=== PATIENT | female | born 1995 | race Two or more races ===

== ENCOUNTER 2016-08-24 10:38 | Emergency (ER) | payer OTHER ==
--- NOTE | 2016-08-24 10:47 | ER Document Report ---
ED Medical Screen (RME) - General Stated Complaint: HIP PAIN Time seen by provider: 10:44 Mode of Arrival: Ambulatory Information source: Patient Notes: 20-year-old female presents to ED for bilateral hip pain for the last 2 weeks. States she went to [facility] yesterday and they stated she could not get an MRI but suggested she come to [place] ER to probably get an MRI of the hips. She was given 3 injections muscle relaxers and prescribed 800 mg ibuprofen and Tylenol and Flexeril. LMP 08/10/15 I have greeted and performed a rapid initial assessment of this patient. A comprehensive ED assessment and evaluation of the patient, analysis of test results and completion of medical decision making process will be conducted by an additional ED providers.
--- NOTE | 2016-08-24 11:28 | ER Document Report ---
HPI - HPI Patient complains to provider of: b/l hip pain Pain Level: 4 Context: He is a 20-year-old female presents emergency department after referral from [facility] ED. patient is complaining of bilateral hip pain for 2 weeks. Denies any injury or trauma. Patient states that she has lateral bilateral hip pain that radiates down to her knee and into her lower back. 4-5 at its worst exacerbated by movement. Eyes any urinary incontinence, stool incontinence, saddle anesthesia. At its worse she will have some tingling in her toes. She is able to bear weight. Patient states her exercise she runs which she has been doing over the past 2 weeks but less than she normally does. In doing physical therapy stretching from when she had a hip injury in high school. For pain she has been taking 800 mg of Motrin, 650 mg of Tylenol and 5 mg of Flexeril. She states that she was able to sleep last night and that her pain is under good control with these medications. She is also been using her heat pack. Denies any other past medical history, surgical history. - DERM Skin Color: Normal Past Medical History - General Information source: Patient - Social History Smoking Status: Never Smoker Chew tobacco use (# tins/day): No Frequency of alcohol use: None Drug Abuse: None Family History: Reviewed & Not Pertinent Patient has suicidal ideation: No Patient has homicidal ideation: No Renal/ Medical History: Denies: Hx Peritoneal Dialysis Vertical Provider Document - CONSTITUTIONAL Agree With Documented VS: Yes Exam Limitations: No Limitations General Appearance: WD/WN, No Apparent Distress - INFECTION CONTROL TRAVEL OUTSIDE OF THE [place] IN LAST 30 DAYS: No - HEENT HEENT: Atraumatic, Normocephalic - CARDIOVASCULAR Pulses: Normal: Dorsalis pedis - BACK Back: Normal Inspection Notes: No tenderness. Full range of motion. Patient able to bend over and touch her toes without any limitations or guarding. No evidence of poor posture. - MUSCULOSKELETAL/EXTREMETIES Musculoskeletal/Extremeties: MAEW, FROM, Non-Tender, No Edema. negative: Eccymosis Notes: No evidence of deformities, injury. - NEURO Level of Consciousness: Awake, Alert, Appropriate Motor/Sensory: No Motor Deficit, No Sensory Deficit - DERM Integumentary: Warm, Dry, No Rash Course - Re-evaluation Re-evalutation: 08/24/16 11:28 Patient is a 20-year-old female who is hemodynamically stable, no acute distress and afebrile. Patient able to bear weight and ambulate without any difficulty noted abnormalities. Low index for suspicion for any emergent spine disorders including the telemetry cauda equina. Considering patient has had this complaint for 2 weeks she is not indicated for emergent imaging. She can follow-up with her primary care provider for outpatient workup. Discharge - Discharge Clinical Impression: Hip pain, bilateral Condition: Good Disposition: HOME, SELF-CARE Instructions: Use of Kbab-Ewx-Yenfsea Ibuprofen ([facility]), Acetaminophen, Muscle Relaxers ([facility]), Stretching Exercises for the Back ([facility]) Additional Instructions: Please continue to take your prescriptions from [facility] as prescribed. Follow-up with a new primary care provider for outpatient evaluation at your complaint as soon as you can. Forms: Return to Work
[2016-08-24 12:08] VITALS: BP 122/74
== END 2016-08-24 12:10 | disposition home or self-care (01) ==
LOC: ER 10:38
DX: M25.551 Pain in right hip (principal); M25.552 Pain in left hip; R20.2 Paresthesia of skin; Z87.828 Personal history of other (healed) physical injury and trauma
CPT/HCPCS: 99283

== ENCOUNTER 2016-09-07 10:48 | Day surgery (SDC) | payer OTHER ==
[2016-09-07] MEDS ORDERED: DIPHENHYDRAMINE HCL 50 MG/ML VIAL ONE ×2 (11:05→11:27)
[2016-09-07] MEDS ORDERED: NALOXONE HCL INJ/PF 0.4 MG/1 ML SDV ONE ×2 (11:05→11:27)
[2016-09-07] MEDS ORDERED: PROMETHAZINE HCL INJ 25 MG/1 ML VIAL ONE ×2 (11:06→11:27)
[2016-09-07] MEDS ORDERED: ONDANSETRON HCL INJ/PF 4 MG/2 ML SDV ONE ×2 (11:06→11:27)
[2016-09-07] MEDS ORDERED: EPINEPHRINE INJ 1 MG/10 ML DISP.SYRIN ONE ×2 (11:07→11:28)
[2016-09-07] MEDS ORDERED: GLUCAGON,HUMAN RECOMB 1 MG INJ ONE ×2 (11:07→11:29)
[2016-09-07] MEDS ORDERED: FLUMAZENIL INJ 0.5 MG/5 ML VIAL IV ONE ×2 (11:07→11:28)
[2016-09-07] MEDS: FENTANYL CITRATE INJ/PF 100 MCG/2 ML AMPUL ONE ×2 (11:24→11:28)
[2016-09-07] MEDS: MIDAZOLAM 2 MG/2 ML INJ ONE ×3 (11:26→11:35)
[2016-09-07] MEDS ORDERED: MIDAZOLAM 2 MG/2 ML INJ ONE (11:28)
[2016-09-07] MEDS ORDERED: FENTANYL CITRATE INJ/PF 100 MCG/2 ML AMPUL ONE ×2 (11:28)
--- NOTE | 2016-09-07 12:07 | Operative Report ---
Operative Report DATE OF SURGERY: 09/07/16 Operative Report: The risks, benefits and alternatives of the procedure including risks of bleeding, perforation requiring surgery are explained to the patient detail and informed consent is obtained. Patient is placed in the left lateral decubital position. She's not back to the endoscopy suite. Conscious sedation medications administered. Timeout is called. A rectal examination was done which did not reveal any masses, tears or fissures. An Olympus video scope was inserted into the patient's rectum. The scope was then advanced all the way to the cecum. The cecum was identified by the usual anatomical landmarks of the ileocecal valve as well as the appendiceal orifice. Photo documentation is obtained. Prep is good. The scope was then sequentially pulled back out via the various segments of the colon including the ascending colon, hepatic flexure , transverse colon, splenic flexure, descending colon and finally into the rectosigmoid colon. Retroflexion maneuvers performed. PREOPERATIVE DIAGNOSIS: Diarrhea change of bowel habits. Previously treated for Clostridium difficile colitis. POSTOPERATIVE DIAGNOSIS: No evidence of ischemic colitis, ulcerative colitis, or pseudomembranous colitis. Terminal ileum is normal no evidence of Crohn's disease. Be mild nonspecific inflammation following treatment with antibiotics. Biopsies obtained to rule out lymphocytic, collagenous, microscopic colitis. Stool sample collected to rule out for ova and parasites. OPERATION: Colonoscopy with biopsy SURGEON: JENNIE ADDISON ANESTHESIA: Moderate Sedation - 7 mg of Versed, 150 g of fentanyl. TISSUE REMOVED OR ALTERED: Colon specimens on the right side obtained COMPLICATIONS: None. ESTIMATED BLOOD LOSS: none. INTRAOPERATIVE FINDINGS: As described above. PROCEDURE: Tolerated procedure well. No immediate postprocedure complications are noted. Patient is discharged in good condition. Discharge date 09/07/2016. Discharge diet: Regular. Discharge activity: Regular. We'll await on biopsies 2-3 week follow-up to discuss findings Patient is instructed to call the office or proceed to the emergency room to any further problems or questions.
[2016-09-07 12:55] VITALS: BP 120/61
== END 2016-09-07 12:40 | disposition home or self-care (01) ==
LOC: END 10:48
PROVIDERS: ATTEND Internal Medicine Gastroenterology
PROC: 0DBF8ZX Excision of Right Large Intestine, Via Natural or Artificial Opening Endoscopic, Diagnostic (ICD-10-PCS; principal; 2016-09-07 11:00)
DX: K62.89 Other specified diseases of anus and rectum (principal); D64.9 Anemia, unspecified; Z79.899 Other long term (current) drug therapy
CPT/HCPCS: 45380; 87209; 87177; 87493 ×2; 88342 ×2; 88305 ×2; J2250; J3010; J0171; J1200; J1610; J2310; J2405; J2550; J3490